=== PATIENT | male | born 1935 | race Caucasian/White ===

== ENCOUNTER 2021-08-07 00:19 | Inpatient (IN) | payer MEDICARE, OTHER, SELFPAY ==
[2021-08-07] VITALS (14 sets, daily range): BP systolic 102–135; BP diastolic 46–88; PULSE 62–99; RESP 18–26; TEMP 34.8–36.5; O2SAT 91–99; BMI 27.7; BMI 28.4
[2021-08-07 00:28] LABS: ABG Base Excess -21.7 mmol/L (-2.4-2.3); ABG HCO3 6.7 mmhg (22.0-26.0); ABG Oxygen Saturation 97 % (90-100); ABG PO2 109.2 mmhg (80-100); ABG TCO2 7.2 mmhg (23-27)
[2021-08-07 00:33] LABS: Allen's Test Y; Oxygen RA %; Source Right Radial
[2021-08-07 00:34] LABS: ABG PCO2 18.3 mmhg (35.0-45.0); ABG PH 7.18 mmol/L (7.35-7.45)
--- NOTE | 2021-08-07 00:35 | XR_ITS ---
PROCEDURE INFORMATION: Exam: XR Chest Exam date and time: 08/07/2021 12:36 AM Age: 86 years old Clinical indication: Shortness of breath; Additional info: Shortness of air TECHNIQUE: Imaging protocol: XR of the chest. Views: 1 view. COMPARISON: No relevant prior studies available. FINDINGS: Limitations: Evaluation is limited by patient rotation. Tubes, catheters and devices: Sternotomy cerclage wires. Lungs: The lungs are adequately inflated. No focal consolidation. Pleural spaces: Unremarkable. No pleural effusion. No pneumothorax. Heart/Mediastinum: Enlargement of the cardiac silhouette. Vasculature: Calcific atherosclerosis of the aorta. Bones/joints: Multilevel degenerative type changes of the spine. No acute osseous abnormality. Intraperitoneal space: The visualized abdomen is unremarkable. IMPRESSION: Enlargement of the cardiac silhouette. Recommend correlation with history/physical exam.
--- NOTE | 2021-08-07 00:36 | ECG_ITS ---
APPROVED REPORT Exam: Resting ECG HR:83 bpm ECG Measurements Heart Rate 83 AXES PA 169 P -18 QRSd 166 QRS -19 QT 453 T 134 QTc 493 Conclusion SINUS RHYTHM INTRAVENTRICULAR CONDUCTION DELAY [130+ ms QRS DURATION] ABNORMAL ECG UNCONFIRMED REPORT Electronically signed by : Lucian Espinoza MD 08/08/2021 09:40:36
[2021-08-07 00:42] LABS: Influenza A, PCR Not Detected (NotDetected); Influenza B, PCR Not Detected (NotDetected)
[2021-08-07 00:43] LABS: Basophils # 0.1 K/mm3 (0-0.2); Basophils % 0.9 % (0.1-2.0); Eosinophils % 0.2 % (0.1-12.0); Hematocrit 48.4 % (42.0-52.0); Hemoglobin 15.3 g/dL (14.1-18.0); Lymphocytes # 0.7 K/mm3 (0.7-4.5); Lymphocytes % 6.8 % (10-50); Mean Corpuscular HGB Conc 31.7 g/dL (31.8-35.4); Mean Corpuscular Hemoglobin 33.3 pg (27.0-31.2); Mean Platelet Volume 10.3 fl (7.4-10.4); Monocytes # 0.7 K/mm3 (0.1-1.0); Monocytes % 7.4 % (1.7-9.3); Neutrophils # 8.4 K/mm3 (1.8-7.8); Neutrophils % 84.7 % (37.0-80.0); Platelet Count 282 K/mm3 (142-424); Red Blood Count 4.61 M/mm3 (4.60-6.20); Red Cell Distribution Width 15.7 % (11.5-17.5); White Blood Count 9.9 K/mm3 (4.8-10.8)
[2021-08-07 00:44] LABS: Microscopic, Urine URINE MICROSCOPIC (MICROSCOPIC)
[2021-08-07 00:47] LABS: Chloride 98 mmol/L (98-107); Sodium 133 mmol/L (136-145)
[2021-08-07 00:48] LABS: Potassium 5.5 mmoL/L (3.5-5.1)
[2021-08-07 00:50] LABS: Alkaline Phosphatase 146 U/L (38-126); Bilirubin,Total 2.2 mg/dl (0.2-1.3); Creatinine Clearance Estimated 27 mL/min (50-200); Estimated Glomerular Filt Rate 24 ml/min (>60); GFR (African American) 29 ML/MIN (>60)
[2021-08-07 00:51] LABS: Albumin Level 4.5 g/dl (3.5-5.0); Albumin/Globulin Ratio 1.6 (1.1-1.8); Anion Gap 29.5 mEq/L (5-15); Carbon Dioxide 11 mmol/L (22.0-30.0); Globulin 2.9 g/dL (1.3-3.2); Glucose 146 mg/dl (74-100); Total Protein,Serum 7.4 g/dl (6.3-8.2)
[2021-08-07 00:56] LABS: C-Reactive Protein 14.7 mg/L (0-4)
--- NOTE | 2021-08-07 00:56 | HMH.EDAMS ---
ED Disposition Clinical Impression: SURESH (acute kidney injury), Metabolic acidosis Altered mental status Qualifiers: Altered mental status type: delirium Qualified Code(s): R41.0 - Disorientation, unspecified Disposition: Admitted as Observation Condition on Discharge: Serious - Critical Care Critical Care Time: No Attestation: On 08/07/21, the high probability of a clinically significant, sudden or life threatening deterioration of the following system(s) required my full and direct attention, intervention and personal management. The time I documented below is in addition to time spent performing reported procedures but includes the following listed in this critical care notation. Medical Decision Making - Medical Records Medical records reviewed: Yes: I reviewed the patient's medical records. - Ze Inquiry Pt receiving controlled substance: No Vital Signs: 08/07/21 00:24 08/07/21 00:30 08/07/21 01:00 Temperature 94.7 F L 96 F L Temperature Source Rectal Rectal Pulse Rate 62 85 Pulse Rate [Apical] 72 Respiratory Rate 18 Blood Pressure 106/88 L 126/70 Blood Pressure [Right Arm] 132/53 L Blood Pressure Mean [Right Arm] 79 Blood Pressure Source [Right Arm] Automatic Cuff Blood Pressure Position [Right Arm] Sitting 02 Sat by Pulse Oximetry 98 97 98 Oxygen Delivery Method Room Air 08/07/21 01:30 08/07/21 02:00 08/07/21 02:31 Temperature 96.7 F L Temperature Source Rectal Pulse Rate 86 99 H 99 H Pulse Rate [Apical] Respiratory Rate Blood Pressure 131/78 134/76 130/77 Blood Pressure [Right Arm] Blood Pressure Mean [Right Arm] Blood Pressure Source [Right Arm] Blood Pressure Position [Right Arm] 02 Sat by Pulse Oximetry 97 92 L 91 L Oxygen Delivery Method Room Air - Lab Data Lab Results 08/07/21 00:20: Specimen Source Right radial, O2 % Ra, ABG pH 7.18 L*, ABG pCO2 18.3 L, ABG pO2 109.2 H, ABG HCO3 6.7 L, ABG Total CO2 7.2 L, ABG O2 Saturation 97, ABG Base Excess -21.7 L, Delvin Test Y 08/07/21 00:20: WBC 9.9, RBC 4.61, Hgb 15.3, Hct 48.4, MCV 105.0 H, MCH 33.3 H, MCHC 31.7 L, RDW 15.7, Plt Count 282, MPV 10.3, Neut % (Auto) 84.7 H, Lymph % (Auto) 6.8 L, [place] % (Auto) 7.4, Eos % (Auto) 0.2, Baso % (Auto) 0.9, Neut # (Auto) 8.4 H, Lymph # (Auto) 0.7, [place] # (Auto) 0.7, Eos # (Auto) 0.0, Baso # (Auto) 0.1, ESR 8 08/07/21 00:20: Sodium 133 L, Potassium 5.5 H, Chloride 98, Carbon Dioxide 11 L, Anion Gap 29.5 H, BUN 88 H, Creatinine 2.60 H, Estimated Creat Clear 27, Estimated GFR 24 L, Est GFR ( Amer) 29 L, Glucose 146 H, Calcium 10.0, Total Bilirubin 2.2 H, AST 386 H*, ALT 328 H*, Alkaline Phosphatase 146 H, C-Reactive Protein 14.7 H, Total Protein 7.4, Albumin 4.5, Globulin 2.9, Albumin/Globulin Ratio 1.6 08/07/21 00:20: Urine Color Yellow, Urine Appearance Clear, Urine pH 5.5, Ur Specific [place] >= 1.030, Urine Protein Negative, Urine Glucose (UA) Negative, Urine Ketones Negative, Urine Blood Negative, Urine Nitrate Negative, Urine Bilirubin Negative, Urine Urobilinogen 4.0, Ur Leukocyte Esterase Negative, Amorphous Sediment Trace 08/07/21 00:20: Lactate 9.3 H 08/07/21 00:20: SARS-CoV-2 (PCR) Detected A, Influenza A Untype (PCR) Not detected, Influenza Type B (PCR) Not detected 08/07/21 00:20: Troponin I 0.89 H, Procalcitonin 0.132 08/07/21 00:20: Acetone Level None detected 08/07/21 02:15: Ammonia < 9 L Result diagrams: 08/07/21 00:20 08/07/21 00:20 Orders (Tests/Meds): ED MEDICATIONS Generic Name Dose Route Start Last Admin Trade Name Freq PRN Reason Stop Dose Admin Sodium Chloride 1,000 mls @ 999 mls/hr 08/07/21 01:00 08/07/21 00:59 Sod Chlor 0.9% 1000ml Bag IV 08/07/21 02:00 999 mls/hr .Q1H1M CONNIE Administration Ceftriaxone Sodium 1 gm/ 50 mls @ 100 mls/hr 08/07/21 02:30 08/07/21 02:18 Sodium Chloride IV 08/21/21 02:29 100 mls/hr Q24H CONNIE Administration Sodium Chloride 1,000 mls @ 125 mls/hr 08/07/21 02:30 08/07/21 02:
[2021-08-07 01:00] LABS: Alanine Aminotransferase 328 U/L (12-78); Aspartate Amino Transferase 386 U/L (17-59)
[2021-08-07 01:01] LABS: Blood Urea Nitrogen 88 mg/dl (9-20)
[2021-08-07 01:07] LABS: Troponin I 0.89 ng/ml (0.00-0.034)
[2021-08-07 01:08] LABS: Lactic Acid 9.3 mmol/L (0.7-2.1)
[2021-08-07 01:09] LABS: Procalcitonin 0.132 ng/mL (0.0-2.0)
--- NOTE | 2021-08-07 01:09 | PC.NURSE ---
Lab called critical 0.89. Lactate acid 9.3 Dr. Cruz aware.
[2021-08-07 01:20] LABS: Erythrocyte Sedimentation Rate 8 mm/hr (0-20)
[2021-08-07 01:21] LABS: Coronavirus 19, PCR Detected (NotDetected)
[2021-08-07 01:30] LABS: Appearance,Urine CLEAR (Clear); Blood, Urine Negative (Negative); Color,Urine YELLOW (Yellow); Glucose,Urine (UA) Negative (Negative); Ketones,Urine Negative (Negative); Leukocyte Esterase,Urine Negative (Negative); Nitrate,Urine Negative (Negative); PH,Urine 5.5 (5.0-8.5); Protein,Urine Negative (Negative); Specific Gravity, Urine >= 1.030 (1.005-1.030)
[2021-08-07 01:38] LABS: Bilirubin,Urine Negative (Negative)
[2021-08-07 01:40] LABS: Amorphous Sediment,Urine Trace /lpf
[2021-08-07 02:18] LABS: Acetone, Serum (Rapid) None Detected (None Detect)
[2021-08-07 02:40] LABS: Ammonia < 9 umol/L (9-30)
--- NOTE | 2021-08-07 03:00 | PC.NURSE ---
Contacted So with [facility] to confirm patients covid status as on patients admission diagnoses to [place] it indicates that patient was positive for covid. However, per So, patient was tested twice for covid and negative on both occasions.
--- NOTE | 2021-08-07 03:25 | PC.NURSE ---
Spoke with Nurse So from [facility] again regarding patient's covid status. Per So, patient had tested positive for covid when admitted to Stroke center on .
[2021-08-07 03:57] LABS: Reflex Lactic Add Lactic Reflex
[2021-08-07 04:30] LABS: Lactic Acid Follow Up (RFLX 1) 4.6 mmol/L (0.7-2.1)
--- NOTE | 2021-08-07 04:31 | PC.NURSE ---
Rafael in lab called with critical troponin of 0.5 and critical lactic of 4.6. No new orders. aware.
--- NOTE | 2021-08-07 04:54 | PC.NURSE ---
patient up to floor via stretcher @ this time.
[2021-08-07 06:00] LABS: Reflex Lactic (2 hrs) Add Lactic Reflex
[2021-08-07 06:44] LABS: POC Glucose,Bedside 144 (70-110)
[2021-08-07 07:01] LABS: Basophils # 0.1 K/mm3 (0-0.2); Basophils % 0.8 % (0.1-2.0); Eosinophils # 0.1 K/mm3 (0.0-0.4); Eosinophils % 0.5 % (0.1-12.0); Hematocrit 41.4 % (42.0-52.0); Lymphocytes # 0.8 K/mm3 (0.7-4.5); Lymphocytes % 8.1 % (10-50); Mean Corpuscular HGB Conc 33.1 g/dL (31.8-35.4); Mean Corpuscular Hemoglobin 33.4 pg (27.0-31.2); Mean Platelet Volume 10.4 fl (7.4-10.4); Monocytes # 0.6 K/mm3 (0.1-1.0); Monocytes % 6.4 % (1.7-9.3); Neutrophils # 8.2 K/mm3 (1.8-7.8); Neutrophils % 84.3 % (37.0-80.0); Platelet Count 222 K/mm3 (142-424); Red Cell Distribution Width 15.7 % (11.5-17.5); White Blood Count 9.7 K/mm3 (4.8-10.8)
[2021-08-07 07:02] LABS: Hemoglobin 13.7 g/dL (14.1-18.0)
--- NOTE | 2021-08-07 07:07 | PC.NURSE ---
Pt alert to person. NULATO. Speech very mumbled. Pt has not voiced any concerns to staff t/o shift. Temp >96.9 since arriving to floor. Call light within reach.
[2021-08-07 07:13] LABS: Anion Gap 19.9 mEq/L (5-15); Calcium 8.6 mg/dl (8.4-10.2); Carbon Dioxide 16 mmol/L (22.0-30.0); Chloride 101 mmol/L (98-107); Creatinine Clearance Estimated 39 mL/min (50-200); Estimated Glomerular Filt Rate 36 ml/min (>60); GFR (African American) 44 ML/MIN (>60); Glucose 141 mg/dl (74-100); Magnesium 2.2 mg/dl (1.6-2.3); Potassium 4.9 mmoL/L (3.5-5.1); Sodium 132 mmol/L (136-145)
[2021-08-07 07:19] LABS: Lactic Acid Follow up (RFLX 2) 4.3 mmol/L (0.7-2.1)
[2021-08-07 07:29] LABS: Blood Urea Nitrogen 84 mg/dl (9-20); Troponin I 0.58 ng/ml (0.00-0.034)
--- NOTE | 2021-08-07 11:08 | HMH.PHAVTE ---
[facility] Pharmacy VTE Monitoring - Patient Demographics Admission date: 08/07/21 Report Date: 08/07/21 Time: 11:08 Allergies/Adverse Reactions: Patient Allergies No Known Allergies Allergy (Verified 08/07/21 00:33) Height: 1.8 m Weight: 92.125 kg Patient Problems: Current Active Problems Altered mental status (Acute) SURESH (acute kidney injury) (Acute) Metabolic acidosis (Acute) - VTE Risk Labs: VTE Related Lab Results Hgb 13.7 g/dL (14.1-18.0) L D 08/07/21 06:32 Hct 41.4 % (42.0-52.0) L 08/07/21 06:32 Plt Count 222 K/mm3 (142-424) 08/07/21 06:32 BUN 84 mg/dl (9-20) H 08/07/21 06:32 Creatinine 1.80 mg/dl (0.66-1.25) H D 08/07/21 06:32 Estimated Creat Clear 39 mL/min (50-200) 08/07/21 06:32 - Prophylaxis VTE Prophylaxis Ordered?: Yes Types of VTE Prophylaxis: TEDS Knee High Location of Applied Device: Bilateral Lower Extremeties
--- NOTE | 2021-08-07 11:20 | HMH.PHAINT ---
MEDICATION RECONCILIATION COMPLETED ON PATIENT USING MAR FROM [facility]. -JAMAR CLEARY, NACHOD
--- NOTE | 2021-08-07 14:51 | HMH.HP ---
*Admission Date: 08/07/21 *Chief complaint: Mental status change, cyanosis *History of present illness: 86-year-old chronically ill demented resident of local [facility] who yesterday evening began to have increasing problems with oxygen saturation and cyanotic extremities. I was called and recommended extra aspirin along with oxygen and comfort measures given his advanced age, multiple comorbidities and DNR status. However, nursing staff called family and they wished him transferred to emergency department for evaluation. This was done and in the ER he was found to be acidotic, afflicted with a lactic acidosis, dehydrated, and had an SURESH. No source of infection was noted with wrist x-ray, clear urinalysis and not elevated white count. Patient was admitted for IV fluids and further evaluation [facility] History I have reviewed the patient's past medical history: Yes Medical History: Reports:: Atherosclerotic Heart Disease, Coronary Artery Disease, Diabetes Mellitus Type 2, Heart Murmur, Hypertension *Have you ever received a pneumonia vaccine?: Yes *Have you received a flu vaccine this season?: Yes - *Social History Smoking Status: Unknown if ever smoked Alcohol Intake: never *Occupational Status:: disabled Housing: [facility] Household Members: other *Travel in the last 8 weeks: None Family Hx:: Unable to obtain Review of Systems - Review of Systems Review of systems:: unable to obtain Meds Home Medications Medication Instructions Recorded Confirmed Type Aspirin [Aspirin 81mg chewable 81 mg PO DAILY 08/07/21 08/07/21 History tab] Atorvastatin Calcium [Lipitor 40mg 40 mg PO HS 08/07/21 08/07/21 History Tab] Clopidogrel Bisulfate [Clopidogrel 75 mg PO 08/07/21 08/07/21 History 75mg Tab] Docusate Sodium [Stool Softener] 100 mg PO BID 08/07/21 08/07/21 History Melatonin 3 mg PO 08/07/21 08/07/21 History Metformin HCl [Metformin HCl ER] 500 mg PO DAILY 08/07/21 08/07/21 History amantadine HCL [Amantadine] 100 mg PO DAILY 08/07/21 08/07/21 History polyethylene glycoL 3350 [Miralax 17 gm PO DAILY 08/07/21 08/07/21 History 17gm Packet] Allergies Allergy/AdvReac Type Severity Reaction Status Date / Time No Known Allergies Allergy Verified 08/07/21 00:33 Exam Vital signs and Labs for Last 24 Hours: Temp Pulse Resp BP Pulse Ox 97.6 F 85 26 H 102/46 L 94 L 08/07/21 12:00 08/07/21 12:00 08/07/21 12:00 08/07/21 12:00 08/07/21 12:00 Laboratory Results - last 24 hr 08/07/21 00:20: Specimen Source Right radial, O2 % Ra, ABG pH 7.18 L*, ABG pCO2 18.3 L, ABG pO2 109.2 H, ABG HCO3 6.7 L, ABG Total CO2 7.2 L, ABG O2 Saturation 97, ABG Base Excess -21.7 L, Delvin Test Y 08/07/21 00:20: WBC 9.9, RBC 4.61, Hgb 15.3, Hct 48.4, MCV 105.0 H, MCH 33.3 H, MCHC 31.7 L, RDW 15.7, Plt Count 282, MPV 10.3, Neut % (Auto) 84.7 H, Lymph % (Auto) 6.8 L, [place] % (Auto) 7.4, Eos % (Auto) 0.2, Baso % (Auto) 0.9, Neut # (Auto) 8.4 H, Lymph # (Auto) 0.7, [place] # (Auto) 0.7, Eos # (Auto) 0.0, Baso # (Auto) 0.1, ESR 8 08/07/21 00:20: Sodium 133 L, Potassium 5.5 H, Chloride 98, Carbon Dioxide 11 L, Anion Gap 29.5 H, BUN 88 H, Creatinine 2.60 H, Estimated Creat Clear 27, Estimated GFR 24 L, Est GFR ( Amer) 29 L, Glucose 146 H, Calcium 10.0, Total Bilirubin 2.2 H, AST 386 H*, ALT 328 H*, Alkaline Phosphatase 146 H, C-Reactive Protein 14.7 H, Total Protein 7.4, Albumin 4.5, Globulin 2.9, Albumin/Globulin Ratio 1.6 08/07/21 00:20: Urine Color Yellow, Urine Appearance Clear, Urine pH 5.5, Ur Specific [place] >= 1.030, Urine Protein Negative, Urine Glucose (UA) Negative, Urine Ketones Negative, Urine Blood Negative, Urine Nitrate Negative, Urine Bilirubin Negative, Urine Urobilinogen 4.0, Ur Leukocyte Esterase Negative, Amorphous Sediment Trace 08/07/21 00:20: Lactate 9.3 H 08/07/21 00:20: SARS-CoV-2 (PCR) Detected A, Influenza A Untype (PCR) Not detected, Influenza Type B (PCR) Not detected 08/07/21 00:20: Trop
--- NOTE | 2021-08-07 18:07 | PC.NURSE ---
pt has been more alert as the shift has progressed. He got up to the BSC x2 assist. FC is intact. He is now wearing 2lnc he desats with any exertion. He is more cooperative @ this time and seems more alert. Will continue to monitor
[2021-08-08] VITALS (9 sets, daily range): BP systolic 104–133; BP diastolic 50–87; PULSE 48–90; RESP 18–24; TEMP 36.6–37.1; O2SAT 90–100; BMI 28.3
[2021-08-08 07:53] LABS: Basophils # 0.1 K/mm3 (0-0.2); Basophils % 0.7 % (0.1-2.0); Eosinophils % 0.3 % (0.1-12.0); Hematocrit 43.6 % (42.0-52.0); Hemoglobin 14.1 g/dL (14.1-18.0); Lymphocytes % 7.9 % (10-50); Mean Corpuscular HGB Conc 32.4 g/dL (31.8-35.4); Mean Platelet Volume 10.6 fl (7.4-10.4); Monocytes # 1.2 K/mm3 (0.1-1.0); Monocytes % 9.8 % (1.7-9.3); Neutrophils # 10.1 K/mm3 (1.8-7.8); Neutrophils % 81.4 % (37.0-80.0); Platelet Count 192 K/mm3 (142-424); Red Blood Count 4.28 M/mm3 (4.60-6.20); Red Cell Distribution Width 15.9 % (11.5-17.5); White Blood Count 12.5 K/mm3 (4.8-10.8)
[2021-08-08 08:00] LABS: Anion Gap 20.2 mEq/L (5-15); Calcium 8.5 mg/dl (8.4-10.2); Carbon Dioxide 14 mmol/L (22.0-30.0); Chloride 100 mmol/L (98-107); Creatinine Clearance Estimated 34 mL/min (50-200); Estimated Glomerular Filt Rate 30 ml/min (>60); GFR (African American) 37 ML/MIN (>60); Glucose 162 mg/dl (74-100); Potassium 5.2 mmoL/L (3.5-5.1); Sodium 129 mmol/L (136-145)
--- NOTE | 2021-08-08 08:06 | PC.NURSE ---
LATE ENTRY - PT HAS MAINTAINED AN 02 SAT >92% ON 2 L NC. PT HAS RESTED WELL THIS SHIFT. IV INFUSING PER ORDER. PT IS NOT EATING MUCH, BUT DID DRINK WATER SEVERAL TIMES LAST NIGHT. PT VOIDING DARK COLORED URINE PER MYERS CATH. MONITORING PT VIA TELE AND CONTINUOUS PULSE OX. BBB ON TELE. NO COMPLAINTS OR NEEDS VOICED. CALL LIGHT IN REACH.
[2021-08-08 09:31] LABS: Blood Urea Nitrogen 91 mg/dl (9-20)
--- NOTE | 2021-08-08 09:37 | HMH.ACPN2 ---
Internal Medicine - PN: Subj *Date: 08/08/21 *Time: 09:37 Interval history: Patient is more alert. And more responsive today. He is eating for the nursing staff with some coaxing. Labs initially had improved yesterday with improving lactate and creatinine but creatinine is taken about backwards today. Exam Vital signs and Labs for Last 24 Hours: Temp Pulse Resp BP Pulse Ox 98.8 F 83 20 123/79 90 L 08/08/21 08:00 08/08/21 08:00 08/08/21 08:00 08/08/21 08:00 08/08/21 08:00 Laboratory Results - last 24 hr 08/08/21 07:43: WBC 12.5 H D, RBC 4.28 L, Hgb 14.1, Hct 43.6, MCV 102.0 H, MCH 33.0 H, MCHC 32.4, RDW 15.9, Plt Count 192, MPV 10.6 H, Neut % (Auto) 81.4 H, Lymph % (Auto) 7.9 L, [place] % (Auto) 9.8 H, Eos % (Auto) 0.3, Baso % (Auto) 0.7, Neut # (Auto) 10.1 H, Lymph # (Auto) 1.0, [place] # (Auto) 1.2 H, Eos # (Auto) 0.0, Baso # (Auto) 0.1 08/08/21 07:43: Sodium 129 L, Potassium 5.2 H, Chloride 100, Carbon Dioxide 14 L, Anion Gap 20.2 H, BUN 91 H, Creatinine 2.10 H, Estimated Creat Clear 34, Estimated GFR 30 L, Est GFR ( Amer) 37 L, Glucose 162 H, Calcium 8.5 I & O for Last 24 hours: Intake & Output 08/05/21 08/06/21 08/07/21 08/08/21 11:59 11:59 11:59 11:59 Intake Total 1860 / 1860 Output Total 600 / 600 575 / 575 Balance -600 / -600 1285 / 1285 Weight 203 lb 1.6 oz Narrative: Alert. Much more responsive, shakes my hand. Extremities are less cool and mottled. Heart rate regular. Abdomen soft. Lungs have diminished air entry but it is hard to tell if this is just from generalized fatigue and his mental status. No skin rash. Assessment and Plan (1) SURESH (acute kidney injury) Status: Acute Category: Medical Code(s): N17.9 - Acute kidney failure, unspecified (2) Altered mental status Status: Acute Qualifiers: Altered mental status type: delirium Qualified Code(s): R41.0 - Disorientation, unspecified Category: Medical Code(s): R41.82 - Altered mental status, unspecified (3) Metabolic acidosis Status: Acute Category: Medical Code(s): E87.2 - Acidosis - Assessment and plan all Dx Assessment and Plan for all problems:: Acidosis improving. Kidney injury slightly worsened today.'s restart IV fluids and follow tomorrow. Continue antibiotics. Cultures remain negative. Continue to respect DNR status.
--- NOTE | 2021-08-08 13:05 | PC.NURSE ---
At approximately 1220 pt's O2 saturations dropped to 70-75%, HR dropped to 10's-30's for a few minutes then would increase to 40's-50's then drop back down. This continued off and on for approx 10-15 minutes. I notified MD and called pt's daughter to notify her of change in pt's status. She wished to rescind pt's DNR status at that time until family could get to the hospital to see pt. Pt was placed on vapotherm 40L/100% with NRB which brought O2 sats up to low 90's. HR returned to 60's and O2 saturations remained 85-95%. Pt remained alert the whole time. BLE were cool and mottled.
--- NOTE | 2021-08-08 16:00 | PC.NURSE ---
Pt is alert to self. Rhonchi noted to lungs. He is currently on vapotherm 40L/100% with a NRB in place. Oxygen saturations have been mostly in the mid 80's. HR has been 50's - 70's. His breaux is to bedside draining dark straw colored urine. 125 mls out thus far. He has been BBB, 1st degree block, and SB on telemetry. Family is currently at bedside and have decided to respect pt's DNR status. Bed is locked and in the lowest position, call light within reach.
[2021-08-09] VITALS (11 sets, daily range): BP systolic 110–122; BP diastolic 56–83; PULSE 59–93; RESP 18–24; TEMP 36.8–37.1; O2SAT 85–100; BMI 29.9
--- NOTE | 2021-08-09 06:45 | PC.NURSE ---
Addendum entered by Naida Palomino RN 08/09/21 06:48: Pt has had a total of 650ml urine output this shift. Original Note: Pt alert to self only. Pt slept majority of shift, will awaken easily to name. Pt tolerating Vapotherm at 40L , 100% o2 well with sats >90%. Daughter at bedside. 4mg PRN Morphine administered to pt due to daughter stating he was moaning in sleep, tolerated well. Call light within reach.
--- NOTE | 2021-08-09 07:14 | HMH.ACPN2 ---
Internal Medicine - PN: Subj *Date: 08/09/21 *Time: 12:30 Interval history: Patient became more somnolent overnight. Had an event overnight where his heart rate dropped to about 15 beats a minute for 20 to 30 minutes. Family transition to full code briefly because they wanted family at bedside to be with him in case he . Readdressed CODE STATUS this morning, transition back to DNR given severity of illness. Labs this morning showing significant multiorgan dysfunction. No p.o. intake. Alejo catheter in place draining light yellow urine. Minimal response to exam, grimace to pain on abdominal exam. Family updated of plan today and findings on rounds and again midday and after clinic. Exam Vital signs and Labs for Last 24 Hours: Temp Pulse Resp BP Pulse Ox 98.4 F 68 18 116/75 100 08/09/21 04:00 08/09/21 04:00 08/09/21 04:00 08/09/21 04:00 08/09/21 04:00 Laboratory Results - last 24 hr 08/08/21 07:43: WBC 12.5 H D, RBC 4.28 L, Hgb 14.1, Hct 43.6, MCV 102.0 H, MCH 33.0 H, MCHC 32.4, RDW 15.9, Plt Count 192, MPV 10.6 H, Neut % (Auto) 81.4 H, Lymph % (Auto) 7.9 L, [place] % (Auto) 9.8 H, Eos % (Auto) 0.3, Baso % (Auto) 0.7, Neut # (Auto) 10.1 H, Lymph # (Auto) 1.0, [place] # (Auto) 1.2 H, Eos # (Auto) 0.0, Baso # (Auto) 0.1 08/08/21 07:43: Sodium 129 L, Potassium 5.2 H, Chloride 100, Carbon Dioxide 14 L, Anion Gap 20.2 H, BUN 91 H, Creatinine 2.10 H, Estimated Creat Clear 34, Estimated GFR 30 L, Est GFR ( Amer) 37 L, Glucose 162 H, Calcium 8.5 I & O for Last 24 hours: Intake & Output 08/06/21 08/07/21 08/08/21 08/09/21 23:59 23:59 23:59 23:59 Intake Total 360 / 360 2460 / 2460 420 / 420 Output Total 725 / 925 775 / 875 650 / 650 Balance -365 / -565 1685 / 1585 -230 / -230 Weight 92.125 kg 92 kg 96.842 kg Microbiology Reports for the Last 24 Hours: Microbiology 08/07/21 00:20 Blood Blood Culture - Preliminary NO GROWTH AFTER 48 HOURS 08/07/21 00:20 Blood Blood Culture - Preliminary NO GROWTH AFTER 48 HOURS Narrative: - Constitutional No acute distress, somnolent - *Routine HEENT Exam Head: Present: normocephalic Eye: Present: PERRL ENT: Present: mucous membranes dry - *Routine Neck Exam Present: supple. No lymphadenopathy, + JVD - *Routine Respiratory Exam Present: prolonged expiratory phase, rhonchi, diminished air movement - *Routine Cardiovascular Exam Present: murmur, RRR, poor distal perfusion, pulses 1+ in feet, feet cold and cyanotic - *Routine Abdominal Exam Present: soft, normoactive bowel sounds. diffuse tenderness - *Routine Extremities Exam Present: cyanosis, extremity cold to touch. No clubbing, edema - *Routine Skin Exam Present: cyanosis. Absent: rash - *Routine Neurological Exam Present: somnolent, grimace to pain, not following commands, not opening eyes Assessment and Plan (1) Encephalopathy Status: Acute Category: Medical Code(s): G93.40 - Encephalopathy, unspecified (2) COVID-19 Status: Acute Category: Medical Code(s): U07.1 - COVID-19 (3) Systolic congestive heart failure Status: Acute Category: Medical Code(s): I50.20 - Unspecified systolic (congestive) heart failure (4) Acute hypoxemic respiratory failure Status: Acute Category: Medical Code(s): J96.01 - Acute respiratory failure with hypoxia (5) SURESH (acute kidney injury) Status: Acute Category: Medical Code(s): N17.9 - Acute kidney failure, unspecified (6) Hepatitis Status: Acute Category: Medical Code(s): K75.9 - Inflammatory liver disease, unspecified (7) Metabolic acidosis Status: Acute Category: Medical Code(s): E87.2 - Acidosis (8) Altered mental status Status: Acute Qualifiers: Altered mental status type: delirium Qualified Code(s): R41.0 - Disorientation, unspecified Category: Medical Code(s): R41.82 - Altered mental status, unspecified
[2021-08-09 07:31] LABS: Albumin/Globulin Ratio 1.3 (1.1-1.8); Alkaline Phosphatase 161 U/L (38-126); Anion Gap 20.1 mEq/L (5-15); Bilirubin,Total 2.6 mg/dl (0.2-1.3); Calcium 7.1 mg/dl (8.4-10.2); Carbon Dioxide 14 mmol/L (22.0-30.0); Chloride 98 mmol/L (98-107); Globulin 2.4 g/dL (1.3-3.2); Glucose 136 mg/dl (74-100); Potassium 5.1 mmoL/L (3.5-5.1); Sodium 127 mmol/L (136-145); Total Protein,Serum 5.4 g/dl (6.3-8.2)
[2021-08-09 07:38] LABS: Creatinine Clearance Estimated 26 mL/min (50-200); Estimated Glomerular Filt Rate 21 ml/min (>60); GFR (African American) 25 ML/MIN (>60)
[2021-08-09 07:39] LABS: ABG Base Excess -11.8 mmol/L (-2.4-2.3); ABG HCO3 13.7 mmhg (22.0-26.0); ABG Oxygen Saturation 100 % (90-100); ABG PCO2 25.1 mmhg (35.0-45.0); ABG PH 7.36 mmol/L (7.35-7.45); ABG PO2 327.3 mmhg (80-100); ABG TCO2 14.5 mmhg (23-27)
[2021-08-09 07:42] LABS: Oxygen 100 %
[2021-08-09 07:43] LABS: Allen's Test ACCEPTABLE; Source L RADIAL
[2021-08-09 07:44] LABS: Lactate Arterial 3.5 mmol/L (0.4-2.0)
[2021-08-09 07:46] LABS: Hematocrit 38.9 % (42.0-52.0); Hemoglobin 13.1 g/dL (14.1-18.0); White Blood Count 10.4 K/mm3 (4.8-10.8)
[2021-08-09 07:47] LABS: Basophils % 0.4 % (0.1-2.0); Eosinophils % 0.2 % (0.1-12.0); Lymphocytes # 0.6 K/mm3 (0.7-4.5); Mean Corpuscular HGB Conc 33.6 g/dL (31.8-35.4); Mean Corpuscular Hemoglobin 33.5 pg (27.0-31.2); Mean Corpuscular Volume 99.6 fl (80-94); Mean Platelet Volume 11.1 fl (7.4-10.4); Monocytes # 0.8 K/mm3 (0.1-1.0); Monocytes % 7.4 % (1.7-9.3); Neutrophils # 8.8 K/mm3 (1.8-7.8); Neutrophils % 84.9 % (37.0-80.0); Platelet Count 105 K/mm3 (142-424); Red Cell Distribution Width 16.1 % (11.5-17.5)
--- NOTE | 2021-08-09 08:17 | PC.NURSE ---
RESP CARE NOTE: Pt vapotherm settings decreased to 30Lpm/40% FIO2, SPO2 remains at 99%. Will continue to monitor and maintain the plan to continue weaning to keep SPO2 above 90%.
[2021-08-09 08:18] LABS: Ammonia 25 umol/L (9-30)
[2021-08-09 08:19] LABS: Acetaminophen < 10 ug/ml (10-30); Salicylate < 1.0 mg/dL (2.0-20.0)
[2021-08-09 08:21] LABS: Blood Urea Nitrogen 108 mg/dl (9-20)
[2021-08-09 08:28] LABS: Alanine Aminotransferase 3970 U/L (12-78); Aspartate Amino Transferase 6090 U/L (17-59)
[2021-08-09 08:29] LABS: Hemoglobin A1C 6.6 % (4.0-6.0)
--- NOTE | 2021-08-09 08:31 | PC.NURSE ---
Provider notified during rounds of critical BUN 108 and ABG Lactate 3.5
--- NOTE | 2021-08-09 09:08 | CA_ITS ---
APPROVED REPORT EXAM: Comprehensive 2D, Doppler, and color-flow Echocardiogram Breaker Operator: Awilda Burgos CRT Ht: 5 ft 10 in Wt: 213lbs BSA: 2.14 BP: 116/75 mmHg Indications: DNR, + Covid, Diabetes, Hypertension/HDD, CAD, SURESH, AMS, HF 2D Dimensions LVOT 1.96 cm (M/F) 1.5-2.5 LA Volume 54.90 mL LA Volume Index 25.70 mL/m2 (M/F) 16-34 M-Mode Dimensions RVDd 4.88 cm (0.9-2.6) LA Diam 4.79 cm (1.9-4.0) LVDd 6.49 cm (3.5-5.7) Ao Diam 3.97 cm (2.0-3.7) LVDs 6.27 cm (3.5-5.7) IVSd 0.84 cm (0.6-1.1) PWd 0.77 cm (0.6-1.1) EF (Teich) 7.50% FS 3.40% EDV (Teich) 215.20 mL TAPSE 1.75 (<1.7) ESV (Teich) 199.00 mL LV Diastology E Decel Time 123.00 (160-240 msec) E/A Ratio 1.29 MED E' 3.10 (< 7 cm/sec) MED A' 4.70 cm/s E'/MED E' Ratio 30.55 (>14) LAT E' 6.50 (<10 cm/sec) LAT A' 6.00 cm/s E/LAT E' Ratio 14.57 (>14) Aortic Valve AI PHT 513.00 ms AO Peak GR. 8.30 mmHg Mitral Valve MV E Max Chris. 95.00 (40-130 cm/s) MV A Velocity 73.00 (40-130 cm/s) E/A Ratio 1.29 MV Decel. Time 123.00 (160-240 ms) MV PHT 36.00 ms Pulmonary Valve PV Peak Velocity 213.00 (50-150 cm/s) Tricuspid Valve TR P. Velocity 295.00 cm/s RAP Estimate 10.00 mmHg RVSP 44.80 mmHg Left Ventricle Technically difficult study because of the patient factors and poor acoustic windows. Left atrium is moderately enlarged, left ventricle is moderately dilated, severe reduced left ventricular systolic function, visually estimated ejection fraction 20% with left ventricular global hypokinesis, diastolic parameters are inconclusive. Right Ventricle Right atrium and right ventricle mildly enlarged with normal contractility. Aortic Valve Aortic valve is thickened and calcified without aortic stenosis, there is mild aortic insufficiency. Mitral Valve Mitral valve leaflets are minimally thickened, there is mild mitral regurgitation. Tricuspid Valve Tricuspid valve grossly normal, there is mild tricuspid regurgitation, calculated right ventricular systolic pressure is 40 mmHg. Pulmonic Valve Pulmonic valve is poorly visualized. Great Vessels Aortic root is normal size. Inferior vena cava is mildly dilated without significant inspiratory collapse. Pericardium No significant pericardial effusion noted. Conclusion 1. Technically difficult study because of the patient factors and poor acoustic windows. 2. Moderate biatrial enlargement, dilated left ventricle, severely reduced left ventricular systolic function, estimated ejection fraction 20%, left ventricle is globally hypokinetic. Diastolic parameters are inconclusive. 3. Mildly enlarged right ventricle with normal contractility. 4. Mild aortic, mild mitral and tricuspid regurgitation, calculated right ventricular systolic pressure is 40 mmHg. 5. Inferior vena cava is mildly dilated without significant inspiratory collapse. 6. No significant pericardial effusion noted. Electronically signed by : Stephan Lozano MD 08/09/2021 21:00:20
--- NOTE | 2021-08-09 09:09 | US_ITS ---
FINAL REPORT CLINICAL HISTORY: COVID-- AMS-- HEPATITIS FINDINGS: Sonographic images of the right upper quadrant were obtained. The pancreas is partially obscured. There are two liver cysts measuring up to 3.1 cm. The gallbladder is surgically absent. The portal vein is dilated measuring 15 mm with normal directional flow. There is no evidence of biliary ductal dilatation.The common duct measures 3 mm. The right kidney measures 10 cm and is unremarkable. Note is made of a right pleural effusion. IMPRESSION: Hepatic cysts measuring up to 3.1 cm. 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 Note is made of a right pleural effusion. Reviewed, Interpreted and Dictated by Victoriano Marcano III, MD Transcribed by Rere Vences Authenticated by Victoriano Marcano III, MD on 08/09/2021 04:23:03 PM [facility]
--- NOTE | 2021-08-09 09:27 | SW/DCPLANNER ---
Addendum entered by Nelly Carrington 08/12/21 09:36: Luly w/ Hospice stated that Kasey will be at [facility] to evaluate this patient this AM. Addendum entered by Alondra Reynolds RN 08/11/21 16:58: Hospice evaluated patient. He cannot go to [facility] or [place] if he is COVID positive. Re-swabbed patient and currently awaiting results. CECILIA Huggins Addendum entered by Nelly Carrington 08/11/21 15:43: Hospice is currently here to evaluate this patient. Addendum entered by Nelly Carrington 08/11/21 09:19: Per family request: patient information will be faxed to [facility]. I will follow up with Luly at [facility] once patient information is reviewed. Addendum entered by Nelly Carrington 08/10/21 09:48: Updated patient information has been faxed to Lexi dotson/ [place]. Original Note: This patient currently resides at [place]. I spoke with Lexi at [facility] and she stated that patient is currently SNF level of care. I will continue to follow up with Lexi until patient is medically stable for discharge. Updated patient information will be faxed to Lexi.
[2021-08-09 09:48] LABS: Activated Partial Thrombo Time 44.8 seconds (22.8-30.6); Prothrombin Time 26.4 seconds (10.1-12.5)
[2021-08-09 16:55] LABS: POC Glucose,Bedside 127 (70-110)
--- NOTE | 2021-08-09 16:58 | PC.NURSE ---
walked into room to check on patient and Vapotherm NC was off of patient and his O2 sats were 94% on RA showing no s/s of acute distress. Patient on continuous O2 monitoring with O2 sats >90. Will continue to monitor.
[2021-08-09 18:29] LABS: Albumin Level 2.9 g/dl (3.5-5.0); Albumin/Globulin Ratio 1.2 (1.1-1.8); Alkaline Phosphatase 177 U/L (38-126); Anion Gap 15.2 mEq/L (5-15); Bilirubin,Total 2.6 mg/dl (0.2-1.3); Calcium 7.2 mg/dl (8.4-10.2); Carbon Dioxide 19 mmol/L (22.0-30.0); Chloride 100 mmol/L (98-107); Globulin 2.5 g/dL (1.3-3.2); Glucose 131 mg/dl (74-100); Potassium 4.2 mmoL/L (3.5-5.1); Sodium 130 mmol/L (136-145); Total Protein,Serum 5.4 g/dl (6.3-8.2)
[2021-08-09 18:34] LABS: Creatinine Clearance Estimated 31 mL/min (50-200); Estimated Glomerular Filt Rate 26 ml/min (>60); GFR (African American) 31 ML/MIN (>60)
[2021-08-09 18:36] LABS: Alanine Aminotransferase > 2250 U/L (12-78)
[2021-08-09 18:38] LABS: Blood Urea Nitrogen 101 mg/dl (9-20)
[2021-08-09 18:49] LABS: Aspartate Amino Transferase 5929 U/L (17-59)
--- NOTE | 2021-08-09 18:56 | PC.NURSE ---
nikkie v.oChristina from Dr. Singer at 1849 to discontinue morning labs & fingersticks
[2021-08-10] VITALS (9 sets, daily range): BP systolic 119–133; BP diastolic 66; PULSE 90–141; RESP 20–24; TEMP 36.3–37.1; O2SAT 90–95; BMI 28.3
--- NOTE | 2021-08-10 06:42 | PC.NURSE ---
Pt remains asleep unless touched. Pt was dropping to mid 80s on RA, 2 L nc applied for comfort. PRN Morphine has been administered 2x due to family stating pt appeared/sounded in pain. Pt tolerated well. Daughter at bedside. Will continue to monitor.
--- NOTE | 2021-08-10 06:46 | PC.NURSE ---
Pt remains asleep unless touched. Pt was dropping to mid 80s on RA, 2 L nc applied for comfort. PRN Morphine has been administered 2x due to family stating pt appeared/sounded in pain. Pt tolerated well. Daughter at bedside. Call light within reach.
--- NOTE | 2021-08-10 08:10 | HMH.ACPN2 ---
Internal Medicine - PN: Subj *Date: 08/10/21 *Time: 08:10 Interval history: Patient remains obtunded, minimally responsive to tactile and verbal stimuli. LFT and creatinine levels continue to bump from yesterday. Family at bedside. They think patient is comfortable. Exam Vital signs and Labs for Last 24 Hours: Temp Pulse Resp BP Pulse Ox 98.7 F 100 H 20 117/83 95 08/09/21 19:55 08/10/21 04:00 08/09/21 19:55 08/09/21 19:55 08/09/21 21:55 Laboratory Results - last 24 hr 08/07/21 00:20: Salicylates < 1.0 L, Acetaminophen < 10 L 08/09/21 06:44: Sodium 127 L, Potassium 5.1, Chloride 98, Carbon Dioxide 14 L, Anion Gap 20.1 H, BUN 108 H*, Creatinine 2.90 H D, Estimated Creat Clear 26, Estimated GFR 21 L, Est GFR ( Amer) 25 L D, Glucose 136 H, Calcium 7.1 L, Total Bilirubin 2.6 H, AST 6090 H* D, ALT 3970 H*, Alkaline Phosphatase 161 H, Total Protein 5.4 L D, Albumin 3.0 L, Globulin 2.4, Albumin/Globulin Ratio 1.3 08/09/21 06:44: Hemoglobin A1c 6.6 H 08/09/21 08:04: Ammonia 25 08/09/21 09:27: PT 26.4 H, INR 2.50 H, APTT 44.8 H 08/09/21 16:46: POC Glucose 127 H 08/09/21 18:05: Sodium 130 L, Potassium 4.2, Chloride 100, Carbon Dioxide 19 L, Anion Gap 15.2 H, BUN 101 H*, Creatinine 2.40 H, Estimated Creat Clear 31, Estimated GFR 26 L, Est GFR ( Amer) 31 L D, Glucose 131 H, Calcium 7.2 L, Total Bilirubin 2.6 H, AST 5929 H*, ALT > 2250 H*, Alkaline Phosphatase 177 H, Total Protein 5.4 L, Albumin 2.9 L, Globulin 2.5, Albumin/Globulin Ratio 1.2 I & O for Last 24 hours: Intake & Output 08/07/21 08/08/21 08/09/21 08/10/21 11:59 11:59 11:59 11:59 Intake Total 2340 / 2340 1900 / 1900 Output Total 600 / 600 575 / 575 975 / 975 5375 / 5375 Balance -600 / -600 1765 / 1765 925 / 925 -5375 / -5375 Weight 203 lb 1.6 oz 202 lb 13.204 oz 213 lb 8 oz 202 lb 9 oz Narrative: Minimally responsive, heart rate regular but bradycardic. Extremities cold and mottled. Abdomen soft. Poor air movement. Assessment and Plan (1) Encephalopathy Status: Acute Category: Medical Code(s): G93.40 - Encephalopathy, unspecified (2) COVID-19 Status: Acute Category: Medical Code(s): U07.1 - COVID-19 (3) Systolic congestive heart failure Status: Acute Category: Medical Code(s): I50.20 - Unspecified systolic (congestive) heart failure (4) Acute hypoxemic respiratory failure Status: Acute Category: Medical Code(s): J96.01 - Acute respiratory failure with hypoxia (5) SURESH (acute kidney injury) Status: Acute Category: Medical Code(s): N17.9 - Acute kidney failure, unspecified (6) Hepatitis Status: Acute Category: Medical Code(s): K75.9 - Inflammatory liver disease, unspecified (7) Metabolic acidosis Status: Acute Category: Medical Code(s): E87.2 - Acidosis (8) Altered mental status Status: Acute Qualifiers: Altered mental status type: delirium Qualified Code(s): R41.0 - Disorientation, unspecified Category: Medical Code(s): R41.82 - Altered mental status, unspecified (9) NSTEMI (non-ST elevated myocardial infarction) Status: Acute Category: Medical Code(s): I21.4 - Non-ST elevation (NSTEMI) myocardial infarction (10) Transaminitis Status: Acute Category: Medical Code(s): R74.01 - Elevation of levels of liver transaminase levels (11) 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 Terminally ill. Comfort/palliative care continues.
--- NOTE | 2021-08-10 14:57 | DIET.NUTRFU ---
Severe heart failure with multi-organ dysfunction. Terminally ill. Comfort/palliative care continues. Patient resting comfortably, refusing all trays at this time. comfort foods available if needed/requested.
--- NOTE | 2021-08-10 16:20 | PC.NURSE ---
Pt has rested most of the day with eyes closed. He has received PRN pain medication one time so far this shift. Pt withdraws to pain and at times is responsive to voice. He has been turned every 2 hours this shift, and has had a bed bath as well. Mottling noted in BLE and 2 ulcerations noted on RLE (see BIO). Breath sounds diminished on auscultation. No BM so far today. Breaux catheter in place, draining clear, dark yellow urine. No kinks or issues with breaux catheter today. Catheter care completed during bed bath.
--- NOTE | 2021-08-11 04:43 | PC.NURSE ---
Patient has been restless throughout shift. Pt is responsive to daughter most of the time when asked questions. PRN pain meds given per MAR. Pt has been Q2H turn, upper extremities elevated with pillows. 400ml in output thus far in shift. Daughter at bedside.
[2021-08-11 05:00] VITALS: BMI 27.2
[2021-08-11 08:00] VITALS: BP 155/73; PULSE 122; PULSE 124; RESP 24; TEMP 36.8; O2SAT 99
--- NOTE | 2021-08-11 09:15 | P.PN_ITS ---
Internal Medicine - PN: Subj *Date: 08/11/21 *Time: 09:15 Interval history: Patient remains obtunded. Occasionally tachycardic. Morphine has helped. Daughter at bedside, comfortable with current plan. Exam Vital signs and Labs for Last 24 Hours: Temp Pulse Resp BP Pulse Ox 98.3 F 122 H 24 155/73 H 99 08/11/21 08:00 08/11/21 08:00 08/11/21 08:00 08/11/21 08:00 08/11/21 08:00 I & O for Last 24 hours: Intake & Output 08/08/21 08/09/21 08/10/21 08/11/21 11:59 11:59 11:59 11:59 Intake Total 2340 / 2340 1900 / 1900 Output Total 575 / 575 975 / 975 5595 / 5595 1500 / 1500 Balance 1765 / 1765 925 / 925 -5595 / -5595 -1500 / -1500 Weight 202 lb 13.204 oz 213 lb 8 oz 202 lb 9 oz 194 lb 8 oz Narrative: Alejo catheter draining dark yellow urine. Patient tachycardic at baseline but appears comfortable. Abdomen soft. Extremities are cool. No meaningful movement or conversation Assessment and Plan (1) Encephalopathy Status: Acute Category: Medical Code(s): G93.40 - Encephalopathy, unspecified (2) COVID-19 Status: Acute Category: Medical Code(s): U07.1 - COVID-19 (3) Systolic congestive heart failure Status: Acute Category: Medical Code(s): I50.20 - Unspecified systolic (congestive) heart failure (4) Acute hypoxemic respiratory failure Status: Acute Category: Medical Code(s): J96.01 - Acute respiratory failure with hypoxia (5) SURESH (acute kidney injury) Status: Acute Category: Medical Code(s): N17.9 - Acute kidney failure, u nspecified (6) Hepatitis Status: Acute Category: Medical Code(s): K75.9 - Inflammatory liver disease, unspecified (7) Metabolic acidosis Status: Acute Category: Medical Code(s): E87.2 - Acidosis (8) Altered mental status Status: Acute Qualifiers: Altered mental status type: delirium Qualified Code(s): R41.0 - Disorientation, unspecified Category: Medical Code(s): R41.82 - Altered mental status, unspecified (9) NSTEMI (non-ST elevated myocardial infarction) Status: Acute Category: Medical Code(s): I21.4 - Non-ST elevation (NSTEMI) myocardial infarction (10) Transaminitis Status: Acute Category: Medical Code(s): R74.01 - Elevation of levels of liver transaminase levels (11) 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 Cardiomyopathy is terminal. Daughter is at bedside and agreeable to inpatient hospice consultation today.
--- NOTE | 2021-08-11 16:12 | PC.NURSE ---
Pt has been comfortable throughout shift, daughter has been at bedside. Pt had temp 101.4, prn tylenol given per mar. Pain medication given prn per may. Empty catheter bag this morning with 450mL output.
[2021-08-11 16:36] LABS: Coronavirus 19, PCR Not Detected (NotDetected); Influenza A, PCR Not Detected (NotDetected); Influenza B, PCR Not Detected (NotDetected)
[2021-08-11 20:00] VITALS: BP 122/75; PULSE 115; RESP 20; TEMP 36.9; O2SAT 81; O2SAT 87
[2021-08-12 01:03] VITALS: RESP 20
[2021-08-12 03:38] VITALS: RESP 20
--- NOTE | 2021-08-12 04:54 | PC.NURSE ---
Patient rested throughout shift with eyes closed. Pt withdrawals from pain. Patient medicated per MAR throughout night. Patient daughter has refused q2 turns this shift. Alejo cath inplace draining dark casey urine. Mottling noted on BLE. Daughter remains at bedside. No complaints voiced at this time.
[2021-08-12 06:24] VITALS: RESP 20
[2021-08-12 07:40] VITALS: BP 116/65; PULSE 83; RESP 20; TEMP 38.2; O2SAT 90
[2021-08-12 08:00] VITALS: O2SAT 90
--- NOTE | 2021-08-12 09:15 | PC.NURSE ---
patient is comfort care. will hold on changing a new iv unless needed to promote comfort.
--- NOTE | 2021-08-12 17:15 | HMH.ACPN2 ---
Internal Medicine - PN: Subj *Date: 08/12/21 *Time: 08:00 Interval history: Remains obtunded, in no acute distress on room air with sats in the high 80s to low 90s. Having episodes of ventricular tachycardia with heart rate in the 120-160 range. Febrile this morning. Discussed how treatment of his fever with rectal Tylenol causes more discomfort and irritation then benefit family at bedside. Questions answered. Exam Vital signs and Labs for Last 24 Hours: Temp Pulse Resp BP Pulse Ox 100.7 F H 83 20 116/65 90 L 08/12/21 07:40 08/12/21 07:40 08/12/21 07:40 08/12/21 07:40 08/12/21 08:00 Laboratory Results - last 24 hr 08/11/21 16:16: SARS-CoV-2 (PCR) Not detected, Influenza A Untype (PCR) Not detected, Influenza Type B (PCR) Not detected I & O for Last 24 hours: Intake & Output 08/09/21 08/10/21 08/11/21 08/12/21 23:59 23:59 23:59 23:59 Intake Total 1420 / 1420 Output Total 4425 / 4825 2920 / 3320 1200 / 1500 300 / 300 Balance -3005 / -3405 -2920 / -3320 -1200 / -1500 -300 / -300 Weight 96.842 kg 91.881 kg 88.224 kg Microbiology Reports for the Last 24 Hours: Microbiology 08/07/21 00:20 Blood Blood Culture - Final NO GROWTH AFTER 5 DAYS 08/07/21 00:20 Blood Blood Culture - Final NO GROWTH AFTER 5 DAYS Narrative: Alejo catheter in place, dark yellow urine. Tachycardic, irregular rhythm Agonal breathing, rhonchi bilaterally Abdomen soft, no response to painful stimuli Feet cold and cyanotic GCS of 3, obtunded Assessment and Plan (1) Encephalopathy Status: Acute Category: Medical Code(s): G93.40 - Encephalopathy, unspecified (2) COVID-19 Status: Acute Category: Medical Code(s): U07.1 - COVID-19 (3) Systolic congestive heart failure Status: Acute Category: Medical Code(s): I50.20 - Unspecified systolic (congestive) heart failure (4) Acute hypoxemic respiratory failure Status: Acute Category: Medical Code(s): J96.01 - Acute respiratory failure with hypoxia (5) SURESH (acute kidney injury) Status: Acute Category: Medical Code(s): N17.9 - Acute kidney failure, unspecified (6) Hepatitis Status: Acute Category: Medical Code(s): K75.9 - Inflammatory liver disease, unspecified (7) Metabolic acidosis Status: Acute Category: Medical Code(s): E87.2 - Acidosis (8) Altered mental status Status: Acute Qualifiers: Altered mental status type: delirium Qualified Code(s): R41.0 - Disorientation, unspecified Category: Medical Code(s): R41.82 - Altered mental status, unspecified (9) NSTEMI (non-ST elevated myocardial infarction) Status: Acute Category: Medical Code(s): I21.4 - Non-ST elevation (NSTEMI) myocardial infarction (10) Transaminitis Status: Acute Category: Medical Code(s): R74.01 - Elevation of levels of liver transaminase levels (11) 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 Continue comfort measures. Family at bedside. Questions answered. Patient actively dying. Developing worsening arrhythmia, ventricular tachycardia, agonal breathing. In no acute distress however. Continue with current palliative medications.
--- NOTE | 2021-08-12 18:34 | PC.NURSE ---
See last bio. Pt has received morphine and Ativan to keep him comfortable. He had a fever this morning talked to Dr. Singer. He spoke with family and they declined medications. He got a bath this afternoon. His breathing has changed to shallow breathing. Family is present at bedside. Will continue to monitor.
[2021-08-12 20:00] VITALS: BP 108/69; PULSE 119; RESP 20; TEMP 37.7; O2SAT 79
--- NOTE | 2021-08-13 01:22 | P.DN_ITS ---
Pronouncement Note - Date and Time of Date of : 08/13/21 Time of : 01:10 - Additional Data Confirmation of : no pulse, no respirations, no heart sounds, pupils fixed and dilated Family: at bedside Attending/PCP notified?: Yes Attending physician: Lucian Espinoza MD Was code activated?: No Autopsy requested?: No health claims examiner notified?: No Organ bank notified?: Yes Advance directives: Yes
--- NOTE | 2021-08-13 01:40 | PC.NURSE ---
PT PROUNOUNCED BY DR TORRES AT 0110 PT RULED OUT BY QUIQUE AT 0134 CASE# [id number]
--- NOTE | 2021-08-13 02:08 | PC.NURSE ---
0130 Yue from hospice notified of pt
--- NOTE | 2021-08-13 04:47 | PC.NURSE ---
BODY RELEASED TO HOME AT THIS TIME.
--- NOTE | 2021-08-13 08:47 | HMH.DEADDC ---
Discharge Sum: Prov - Provider Primary care physician: Lucian Espinoza MD Visit Care Team Role Provider Type Nick Cruz MD Emergency Provider Staff Physician Lucian Espinoza MD Admit Provider Staff Physician Attending Provider Primary Care Provider Admitting clinician: Clark Singer Attending physician on admission: Lucian Espinoza Consults: 08/11/21 09:55 Consult to Hospice [CONS] Routine Comment: Hospice referral Consulting Provider: Pronouncing clinician: Nick rCuz Discharge Sum: Diag - PCOD Cause of : Acute systolic congestive heart failure Discharge Sum: Summary - Date and Time Date of admission: 08/09/21 09:00 Date of : 08/13/21 Time of : 01:10 - Hospital Course prior to Hospital Course Information: 86-year-old male who presented with altered mental status and dehydration. Found to have acute kidney injury, elevated lactate, high anion gap metabolic acidosis, and transaminitis. Unclear etiology on presentation. Labs during admission showed worsening transaminitis, elevated INR, worsening creatinine, and echocardiogram obtained showing EF of 10-20%. Presentation consistent with heart failure, congestive hepatopathy, and cardiorenal disease. Discussion with family at bedside, given patient's CODE STATUS and severity of organ dysfunction, goal to keep patient comfortable and pursue palliative measures. Patient in multiorgan failure. Problems addressed as follows: High anion-gap metabolic acidosis Acute on chronic renal failure Acute hepatitis with liver failure (elevated INR, thrombocytopenia, severe elevation of liver enzymes consistent with hepatocellular injury) -Findings today support diagnosis of hyperperfusion leading to acidosis. Anion gap likely due to uremia and lactic acidosis. No improvement with IV fluids. Condition actually worsened. Consistent with heart failure. Given discussion with family about goals of care and comfort measures, transition to minimal medications. Patient comfortable. No further treatment for acidosis, hepatitis, renal failure. Heart failure -Cool feet concerning for cardiogenic shock, echo obtained with severely depressed EF. In conjunction with organ dysfunction/multiorgan failure, transition to curative measures in accordance with patient and family wishes. Patient was kept comfortable with hospice type care. Condition deteriorated until passing away peacefully in his sleep on the morning of 08/13. Hospice was consulted, patient unstable to transfer to care center/actively dying.. Continued management at [facility]. - Summary Details: Given severity of multiorgan failure, transition to hospice care. Patient comfortable with Ativan and morphine. Continue to decline with gradual decrease in blood pressure. Patient went into sustained V. tach. Ultimately went into cardiac arrest suspected from electrolyte disturbances and metabolic acidosis. - Additional Data Confirmation of as documented by pronouncing clinician: no pulse, no respirations, no heart sounds, pupils fixed and dilated Family: at bedside Attending/PCP notified?: Yes Attending physician: Lucian Espinoza MD Was code activated?: No Autopsy requested?: No train examiner notified?: No Organ bank notified?: Yes Advance directives: Yes Hospice patient?: Yes
== END 2021-08-13 04:48 | disposition expired | DRG 682 ==
LOC: ER 01:41 → 2ND 03:25
PROVIDERS: Internal Medicine Adolescent Medicine; Nurse Practitioner Family; Admitting Provider Internal Medicine Adolescent Medicine; Emergency Provider Emergency Medicine; PCP Internal Medicine Adolescent Medicine; Visit Provider Internal Medicine Adolescent Medicine
DX: N17.9 Acute kidney failure, unspecified (principal); U07.1 COVID-19; J96.01 Acute respiratory failure with hypoxia; I21.4 Non-ST elevation (NSTEMI) myocardial infarction; I50.21 Acute systolic (congestive) heart failure; G93.40 Encephalopathy, unspecified; E87.2 Acidosis; I69.351 Hemiplegia and hemiparesis following cerebral infarction affecting right dominant side; I42.9 Cardiomyopathy, unspecified; I13.0 Hypertensive heart and chronic kidney disease with heart failure and stage 1 through stage 4 chronic kidney disease, or unspecified chronic kidney disease; Z51.5 Encounter for palliative care; K75.9 Inflammatory liver disease, unspecified; D69.6 Thrombocytopenia, unspecified; E86.0 Dehydration; Z66 Do not resuscitate; E11.22 Type 2 diabetes mellitus with diabetic chronic kidney disease; N18.9 Chronic kidney disease, unspecified
CPT/HCPCS: 36415; 71045; 80048; 80053; 80329; 81001; 82009; 82140; 82803; 82962; 83036; 83605; 83735; 84145; 84484; 85025; 85610; 85651; 85730; 86140; 87040; 93005; 93306; 93975; 94761; 99285; C9803; G0378; J0696; J1956; U0003; U0005